=== PATIENT | male | born 1985 | race Two or more races ===

== ENCOUNTER 2025-06-02 09:22 | Inpatient (IN) | payer SELFPAY ==
[~2025-06-02] VITALS: Ht 167.6 cm; Wt 59.0 kg
--- NOTE | 2025-06-02 09:42 | ED.PDOC ---
General HPI Comments 39-year-old male with no significant past medical history presents to the ED via emergency services with a chief complaint of left-sided flank pain. EMS states the patient's pain started approximately 730 this morning, and note the patient was given an ultrasound, and noted sediment in the patient's left kidney and in his bladder. She does not know on using marijuana last night before going to bed. Patient denies any nausea, vomiting, diarrhea, shortness a breath, headache, chest pain, or any other associated symptoms, modifiers at this time. Chief Complaint: Flank Pain Time Seen by MD: 09:39 Reviewed notes: Nurses Notes, Medications, Allergies Allergies: Coded Allergies: NO KNOWN ALLERGIES (Unverified , 06/02/25) Information Source: Patient, Emergency Med Personnel Mode of Arrival: EMS Severity: Moderate Inability to void: None Timing: Hours Duration: Since onset, Hours Has not urinated for: Hours Prehospital treatment: 12 Lead EKG, Dental Biller, Pain Meds Onset: Spontaneous Symptoms: None History of: None Location: (L)Flank Penile discharge: None associated signs and symptoms: Flank Pain Past Medical History PAST MEDICAL HISTORY: Denies Surgical History: Denies all surgeries Family History Family History: Reviewed,noncontributory to illness Social History Smoker: Non-Smoker Alcohol: Denies ETOH Use Drugs: Denies Drug Use Lives In: Home Constitutional: denies: chills, diaphoresis, fatigue, fever, malaise, sweats, weakness, others EENTM: denies: blurred vision, double vision, ear bleeding, ear discharge, ear drainage, ear pain, ear ringing, eye pain, eye redness, hearing loss, mouth pain, mouth swelling, nasal discharge, nose bleeding, nose congestion, nose pain, photophobia, tearing, throat pain, throat swelling, voice changes, others Respiratory: denies: cough, hemoptysis, orthopnea, SOB at rest, shortness of breath, SOB with excertion, stridor, wheezing, others Cardiovascular: denies: chest pain, dizzy spells, diaphoresis, Dyspnea on exertion, edema, irregular heart beat, left arm pain, lightheadedness, palpitations, PND, syncope, others Gastrointestinal: denies: abdomen distended, abdominal pain, blood streaked bowels, constipated, diarrhea, dysphagia, difficulty swallowing, hematemesis, melena, nausea, poor appetite, poor fluid intake, rectal bleeding, rectal pain, vomiting, others Genitourinary: reports: flank pain; denies: burning, dysuria, frequency, hematuria, incontinence, penile discharge, penile sore, pain, testicle pain, testicle swelling, urgency, others Neurological: denies: dizziness, fainting, headache, left sided numbness, left sided weakness, numbness, paresthesia, pre-existing deficit, right sided numbness, right sided weakness, seizure, speech problems, tingling, tremors, weakness, others Musculoskeletal: denies: back pain, gout, joint pain, joint swelling, muscle pain, muscle stiffness, neck pain, others Integumetry: denies: bruises, change in color, change in hair/nails, dryness, laceration, lesions, lumps, rash, wounds, others Allergic/Immunocompromised: denies: Difficulty Healing, Frequent Infections, Hives, Itching, others Hematologic/Lymphatic: denies: anemia, blood clots, easy bleeding, easy bruising, swollen glands, others Endocrine: denies: excessive hunger, excessive sweating, excessive thirst, excessive urination, flushing, intolerance to cold, intolerance to heat, unexplained weight gain, unexplained weight loss, others Psychiatric: denies: anxiety, bipolar disorder, depression, hopeless, panic disorder, schizophrenia, sleepless, suicidal, others All Other Systems: Reviewed and Negative Physical Exam General Appearance: Moderate Distress, Normal HEENT: Normal ENT Inspection, Pharynx Normal, TMs Normal Neck: Full Range of Motion, Non-Tender, Normal, Normal Inspection Respiratory: Chest Non-Tender, Lungs Clear, No Accessory Muscle Use, No Respiratory Distress, Normal Breath Sounds Cardiovascular: No Edema, No JVD, No Murmur, No Gallop, Normal Peripheral Pulses, Regular Rate/Rhythm Breast Exam: Deferred Gastrointestinal: LLQ, No Organomegaly, No Pulsatile Mass, Normal Bowel Sounds, Soft Genitalia: Deferred Pelvic: Deferred Rectal: Deferred Extremities: No calf tenderness, Normal capillary refill, Normal inspection, Normal range of motion, Non-tender, No pedal edema Musculoskeletal : Apperance: Normal Neurologic: Alert, plc technician II-XII nml as Tested, No Motor Deficits, Normal Affect, Normal Mood, No Sensory Deficits Cerebellar Function: NOT DONE Reflexes: NOT DONE Skin: Dry, Normal Color, Warm Peripheral Pulses: 3+ Radial (R), 3+ Radial (L) Lymphatic: No Adenopathy Was a procedure done? Was a procedure done?: No Differential Diagnosis Kidney stone (Female): N/A Kidney stone (Male): Bowel obstruction, Cholelithiasis, Pancreatitis, Pyelonephritis, Strain, Urinary obstruction, Urolithiasis, Urinary tract infection Penile/Scrotal: N/A Urinary Problem (Male): Bladder Obstruction, Epididymitis, Prostatitis, Urethritis, Urinary Retention, Urolithiasis, UTI Urinary Problem (Female): N/A X-Ray, Labs, Meds, VS Vital Signs Date Time Temp Pulse Resp B/P (MAP) Pulse Ox O2 Delivery O2 Flow Rate FiO2 06/02/25 16:00 56 12 125/87 (100) 97 06/02/25 14:00 89 14 111/54 (73) 97 06/02/25 13:19 73 12 105/56 06/02/25 13:00 73 13 105/56 (72) 95 06/02/25 12:49 74 16 109/58 06/02/25 12:30 74 15 101/59 (73) 98 06/02/25 12:00 69 14 104/64 (77) 99 06/02/25 11:00 58 14 98/68 (78) 97 06/02/25 09:56 46 13 99 Room Air* 0 21 06/02/25 09:56 98.5 46 13 128/87 (101) 99 98.5 06/02/25 09:27 97.0 42 22 137/78 100 97.0 Lab Test 06/02/25 09:48 Range/Units White Blood Count 17.5 H 4.4-10.8 10^3/uL Red Blood Count 5.06 4.5-5.90 10^6/uL Hemoglobin 15.9 13.5-17.5 g/dL Hematocrit 46.7 41.0-53.0 % Mean Corpuscular Volume 92.4 80.0-100.0 fL Mean Corpuscular Hemoglobin 31.4 28.0-32.0 pg Mean Corpuscular Hemoglobin Concent 34.0 32.0-36.0 g/dL Red Cell Distribution Width 12.9 11.8-14.3 % Platelet Count 234 140-450 10^3/uL Mean Platelet Volume 8.9 6.9-10.8 fL Neutrophils (%) (Auto) 84.6 H 37.0-80.0 % Lymphocytes (%) (Auto) 11.7 10.0-50.0 % Monocytes (%) (Auto) 2.8 0.0-12.0 % Eosinophils (%) (Auto) 0.7 0.0-7.0 % Basophils (%) (Auto) 0.2 0.0-2.0 % Neutrophils # (Auto) 14.8 H 1.6-8.6 10 ^3/uL Lymphocytes # (Auto) 2.1 0.4-5.4 10 ^3/uL Monocytes # (Auto) 0.5 0-1.3 10 ^3/uL Eosinophils # (Auto) 0.1 0-0.8 10 ^3/uL Basophils # (Auto) 0 0-0.2 10 ^3/uL Nucleated Red Blood Cells 0.0 % Sodium Level 141 136-145 mmol/L Potassium Level 4.5 3.5-5.1 mmol/L Chloride Level 112 H 98-107 mmol/L Carbon Dioxide Level 24 20-31 mmol/L Anion Gap 5 5-15 Blood Urea Nitrogen 10 9-23 mg/dL Creatinine 0.97 0.700-1.30 mg/dL Glomerular Filtration Rate Calc 103 >90 mL/min BUN/Creatinine Ratio 10.3 10.0-20.0 Serum Glucose 112 H 74-106 mg/dL Calcium Level 9.1 8.7-10.4 mg/dL Lipase 30 12-53 U/L Current Medications Medications (Trade) Dose Ordered Sig/Jennifer Route Start Time Stop Time Status Last Admin Ketorolac Tromethamine (Toradol Injection) 30 mg ONCE ONCE IV 06/02/25 09:45 06/02/25 09:46 DC 06/02/25 09:50 Ondansetron HCl (Zofran) 4 mg ONCE ONCE IV 06/02/25 09:45 06/02/25 09:46 DC 06/02/25 09:49 Sodium Chloride 1,000 ml @ 1,000 mls/hr Q1H ONCE IV 06/02/25 09:45 06/02/25 10:44 DC 06/02/25 09:49 Ceftriaxone Sodium 50 ml @ 100 mls/hr ONCE ONCE IV 06/02/25 12:15 06/02/25 12:44 DC 06/02/25 12:23 Sodium Chloride 1,000 ml @ 1,000 mls/hr Q1H ONCE IV 06/02/25 12:30 06/02/25 13:29 DC 06/02/25 12:25 Morphine Sulfate 4 mg ONCE ONCE IV 06/02/25 12:30 06/02/25 12:31 DC 06/02/25 12:49 Ondansetron HCl (Zofran) 4 mg ONCE ONCE IV 06/02/25 12:30 06/02/25 12:31 DC 06/02/25 12:49 Patient alert. Complaining of abdominal pain. Uses marijuana. Vitals stable. Answering questions. Establish intravenous access. Was given fluids. Was given Toradol. Was given Zofran. Continues to have pain. Explained to the patient. Continues to have abdominal pain. CT scan of the abdomen shows kidney stone. WBC elevated. Was given Rocephin. PATIENT: LAWRENCE MATOS ACCT: [id number] UNIT: [id number] : 1985 LOC: ER ROOM / BED: / AGE / SEX: 39 / M ADM STATUS: REG ER SERVICE 1201 ORDERING PHYSICIAN: PAYAM PRINCE MD PROCEDURE(s): ABPL - CT AB PEL WO CON-NO ORAL OR IV REASON: stone ORDER NUMBER(s): [id number], ACCESSION NUMBER(s): [id number] Exam: CT CT AB PEL WO CON-NO ORAL OR IV History: stone Comparison Study: None TECHNIQUE: Multidetector CT of the abdomen was performed from lung bases to pubic symphysis. Imaging was performed without IV contrast. Axial, coronal and sagittal multiplanar reformats were obtained from the axial data set by the technologist. Radiation Dose Information: CT Dose: CTDI volume is 5.08 mGy. Dose-length product is 245.23 mGy*cm FINDINGS: Evaluation of solid organs is limited due to lack of intravenous contrast use. Findings: Lung Bases: No acute or significant lung base finding. Normal heart size. No pleural or pericardial effusion. Liver: The liver is normal in size. No focal lesions. Gallbladder and Biliary Tree: Unremarkable Spleen: Unremarkable Pancreas: The pancreas is grossly normal in appearance. Adrenal Glands: Unremarkable Kidneys: No hydronephrosis. Punctate nonobstructing bilateral renal calculi. Bladder: Grossly unremarkable for degree of distention. Bowel: The stomach is grossly normal in appearance. Small bowel and colon are normal in caliber and distribution. The appendix is not visualized; however, no secondary findings of acute appendicitis identified. Ascites: Absent Lymphadenopathy: No mesenteric, retroperitoneal or periportal lymphadenopathy. Abdominal Wall and Mesentery: Unremarkable. Vasculature: The visualized abdominal aorta is normal in size and caliber. Evaluation of abdominal and pelvic vessels is limited due to lack of intravenous contrast. Pelvic Organs: Unremarkable Musculoskeletal: No aggressive focal bony lesions, acute fractures or dislocation. Soft tissues: Unremarkable IMPRESSION: No hydronephrosis. Punctate nonobstructing bilateral renal calculi. Radiation optimization: All CT scans at this facility use at least one of these dose optimization techniques: automated exposure control mA and/or kV adjustment per patient size (includes targeted exams where dose is matched to clinical indication) or iterative reconstruction. Time of 1ST Reevaluation: 10:09 Reevaluation 1ST: Unchanged Patient Education/Counseling: Diagnosis, Treatment, Need For Follow Up Family Education/Counseling: No Family Present SEPSIS Sepsis Screen Date sepsis recognized/suspect: Jun 02, 2025 Time Sepsis recognized/suspect: 931 Recent Procedure: No On Antibiotic Therapy: No Respiratory Rate >20: Yes Heart Rate >90: No Temp<36 C (96.8 F) or >38.3 C: No SBP <90 or MAP <65 mmHG: No New Acute Mental Status Change: No Is the patient on CPAP, BIPAP,: No Physician Orders Urinalysis (06/02/25 09:36) Drug Screen (06/02/25 09:51) Ct Ab Pel Wo Con-No Oral Or Iv (06/02/25 12:01) Admit (06/02/25 16:50) Code Status (06/02/25 16:50) Vital Signs .PER UNIT PROTOCOL (06/02/25 16:50) Review Orders With Adm.Md (06/02/25 16:50) Encourage Activity As Tolerate (06/02/25 16:50) Regular Diet (06/02/25 Dinner) Sodium Chloride Lock (Saline Lock Ns) (06/02/25 22:00) Docusate Sodium Capsule (Colace Capsule) (06/02/25 17:00) Acetaminophen Tablet (Tylenol Tablet) (06/02/25 17:00) Notify Md Of Changes From Base (06/02/25 16:50) Advance Directive (06/02/25 16:50) Patient Condition (06/02/25 16:50) Allergies (06/02/25 16:50) Hydrocodone-Acet 5/325mg Tab (Bruner 5/32 (06/02/25 17:00) Ondansetron Hcl (Zofran) (06/02/25 17:00) Morphine Sulfate Injection (06/02/25 17:00) Enoxaparin Sodium (Lovenox) (06/03/25 10:00) Tamsulosin Hydrochloride (Flomax) (06/02/25 17:00) Sodium Chloride 0.9% (06/02/25 17:00) Ketorolac Injection (Toradol Injection) (06/02/25 17:15) Vital Signs Date Time Temp Pulse Resp B/P (MAP) Pulse Ox O2 Delivery O2 Flow Rate FiO2 06/02/25 16:00 56 12 125/87 (100) 97 06/02/25 14:00 89 14 111/54 (73) 97 06/02/25 13:19 73 12 105/56 06/02/25 13:00 73 13 105/56 (72) 95 06/02/25 12:49 74 16 109/58 06/02/25 12:30 74 15 101/59 (73) 98 06/02/25 12:00 69 14 104/64 (77) 99 06/02/25 11:00 58 14 98/68 (78) 97 06/02/25 09:56 46 13 99 Room Air* 0 21 06/02/25 09:56 98.5 46 13 128/87 (101) 99 98.5 06/02/25 09:27 97.0 42 22 137/78 100 97.0 Laboratory Tests Test 06/02/25 09:48 White Blood Count 17.5 10^3/uL (4.4-10.8) H Medications Medications Dose Ordered Sig/Jennifer Route Start Time Stop Time Status Last Admin Dose Admin Ceftriaxone Sodium 50 ml @ 100 mls/hr ONCE ONCE IV 06/02/25 12:15 06/02/25 12:44 DC 06/02/25 12:23 Ketorolac Tromethamine 30 mg ONCE ONCE IV 06/02/25 09:45 06/02/25 09:46 DC 06/02/25 09:50 Morphine Sulfate 4 mg ONCE ONCE IV 06/02/25 12:30 06/02/25 12:31 DC 06/02/25 12:49 Ondansetron HCl 4 mg ONCE ONCE IV 06/02/25 09:45 06/02/25 09:46 DC 06/02/25 09:49 Ondansetron HCl 4 mg ONCE ONCE IV 06/02/25 12:30 06/02/25 12:31 DC 06/02/25 12:49 Sodium Chloride 1,000 ml @ 1,000 mls/hr Q1H ONCE IV 06/02/25 09:45 06/02/25 10:44 DC 06/02/25 09:49 Sodium Chloride 1,000 ml @ 1,000 mls/hr Q1H ONCE IV 06/02/25 12:30 06/02/25 13:29 DC 06/02/25 12:25 Departure 1 Departure Time of Disposition: 09:51 Impression: Primary Impression: Acute abdominal pain Additional Impression: Kidney stone Disposition: ADMITTED INPATIENT Admit to: Med Surg Condition: Guarded Critical Care Note Critical Care Time?: No Stability Stability form required: No Heart Score Heart Score: Heart Score Response (Comments) Value History N/A 0 EKG N/A 0 Age N/A 0 Risk Factors N/A 0 Troponin N/A 0 Total 0 I personally scribed for PAYAM PRINCE MD ([email or web address]) on 06/02/25 at 09:42. Electronically submitted by Mayco Rothman ([email or web address]). I personally scribed for PAYAM PRINCE MD ([email or web address]) on 06/02/25 at 13:57. Electronically submitted by Mayco Rothman ([email or web address]). PAYAM PRINCE MD Jun 02, 2025 09:42
[2025-06-02] MEDS: ONDANSETRON HCL 4 MG/2 ML VIAL IV ONE ×2 (09:49→12:49)
[2025-06-02] MEDS: SODIUM CHLORIDE 0.9% 1,000 ML IV ONE ×3 (09:49→17:47)
[2025-06-02] MEDS: KETOROLAC TROMETH 30 MG/ML 1ML VIAL IV ONE (09:50)
[2025-06-02 09:56] VITALS: PULSE 46; RESP 13; O2SAT 99
[2025-06-02 10:02] LABS: Hematocrit 46.7 % (41.0-53.0); Hemoglobin 15.9 g/dL (13.5-17.5); Mean Corpuscular Hemoglobin 31.4 pg (28.0-32.0); Mean Corpuscular Volume 92.4 fL (80.0-100.0); Nucleated Red Blood Cells % 0.0 %
[2025-06-02 10:16] LABS: Anion Gap 5 (5-15); Carbon Dioxide 24 mmol/L (20-31); Potassium 4.5 mmol/L (3.5-5.1); Sodium 141 mmol/L (136-145)
[2025-06-02 10:17] LABS: Calcium 9.1 mg/dL (8.7-10.4)
[2025-06-02 10:22] LABS: BUN/Creatinine Ratio 10.3 (10.0-20.0); Blood Urea Nitrogen 10 mg/dL (9-23); Lipase 30 U/L (12-53)
[2025-06-02 10:24] LABS: Chloride 112 mmol/L (98-107); Glucose 112 mg/dL (74-106)
[2025-06-02] MEDS: cefTRIAXone 1GM/50ML D5W 50 ML IV ONE (12:23)
--- NOTE | 2025-06-02 12:40 | DVH ---
Exam: CT CT AB PEL WO CON-NO ORAL OR IV History: stone Comparison Study: None TECHNIQUE: Multidetector CT of the abdomen was performed from lung bases to pubic symphysis. Imaging was performed without IV contrast. Axial, coronal and sagittal multiplanar reformats were obtained fr om the axial data set by the technologist. Radiation Dose Information: CT Dose: CTDI volume is 5.08 mGy. Dose-length product is 245.23 mGy*cm FINDINGS: Evaluation of solid organs is limited due to lack of intravenous contrast use. Findings: Lung Bases: No acute or significant lung base finding. Normal heart size. No pleural or pericardial effusion. Liver: The liver is normal in size. No focal lesions. Gallbladder and Biliary Tree: Unremarkable Spleen: Unremarkable Pancreas: The pancreas is grossly normal in appearance. Adrenal Glands: Unremarkable Kidneys: No hydronephrosis. Punctate nonobstructing bilateral renal calculi. Bladder: Grossly unremarkable for degree of distention. Bowel: The stomach is grossly normal in appearance. Small bowel and colon are normal in caliber and d istribution. The appendix is not visualized; however, no secondary findings of acute appendicitis id entified. Ascites: Absent Lymphadenopathy: No mesenteric, retroperitoneal or periportal lymphadenopathy. Abdominal Wall and Mesentery: Unremarkable. Vasculature: The visualized abdominal aorta is normal in size and caliber. Evaluation of abdominal a nd pelvic vessels is limited due to lack of intravenous contrast. Pelvic Organs: Unremarkable Musculoskeletal: No aggressive focal bony lesions, acute fractures or dislocation. Soft tissues: Unremarkable IMPRESSION: No hydronephrosis. Punctate nonobstructing bilateral renal calculi. Radiation optimization: All CT scans at this facility use at least one of these dose optimization marquis hniques: automated exposure control mA and/or kV adjustment per patient size (includes targeted exam s where dose is matched to clinical indication) or iterative reconstruction.
[2025-06-02] MEDS: MORPHINE SULFATE 4 MG/ML SYR/VIAL IV ONE (12:49)
[2025-06-02] MEDS ORDERED: ACETAMINOPHEN 325 MG TAB PO PRN (17:00)
[2025-06-02] MEDS ORDERED: DOCUSATE SOD 100 MG CAP PO PRN (17:00)
--- NOTE | 2025-06-02 17:04 | DVHHP2 ---
Admitting Diagnosis: Flank pain History of Present Illness 39-year-old male with no significant past medical history presents to the ED via emergency services with a chief complaint of left-sided flank pain. EMS states the patient's pain started approximately 730 this morning, and note the patient was given an ultrasound, and noted sediment in the patient's left kidney and in his bladder. She does not know on using marijuana last night before going to bed. Patient denies any nausea, vomiting, diarrhea, shortness a breath, headache, chest pain, or any other associated symptoms, modifiers at this time. PAST MEDICAL HISTORY: Denies Surgical History: Denies all surgeries Family History Family History: Reviewed,noncontributory to illness Social History Smoker: Non-Smoker Alcohol: Denies ETOH Use Drugs: Denies Drug Use Lives In: Home Allergies: Coded Allergies: NO KNOWN ALLERGIES (Unverified , 06/02/25) Current Medications Current Medications Medications (Trade) Dose Ordered Sig/Jennifer Route PRN Reason Start Time Stop Time Status Last Admin Sodium Chloride (Saline Lock Ns) 10 ml Q8HR IV 06/02/25 22:00 UNV Docusate Sodium (Colace Capsule) 100 mg BIDPRN PRN PO FOR CONSTIPATION 06/02/25 17:00 UNV Acetaminophen (Tylenol Tablet) 650 mg Q6HP PRN PO PAIN SCALE 1-3 OR TEMP>100.4 06/02/25 17:00 UNV Acetaminophen/ Hydrocodone Bitart ([place] 5/325MG Tab) 1 tab Q4HP PRN PO MODERATE PAIN (4-6 PAIN SCALE) 06/02/25 17:00 UNV Ondansetron HCl (Zofran) 4 mg Q4HP PRN IV NAUSEA / VOMITING 06/02/25 17:00 UNV Morphine Sulfate 4 mg Q4HPRN PRN IV SEVERE PAIN (7-10 PAIN SCALE) 06/02/25 17:00 UNV Enoxaparin Sodium (Lovenox) 40 mg DAILY SC 06/03/25 10:00 UNV Vital Signs Vital Signs Date Time Temp Pulse Resp B/P (MAP) Pulse Ox O2 Delivery O2 Flow Rate FiO2 06/02/25 16:00 56 12 125/87 (100) 97 06/02/25 09:56 Room Air* 0 21 06/02/25 09:56 98.5 98.5 Physical Exam Generally-39 years old male, well nourished well developed. moderate distress, HEENT-atraumatic normocephalic Heart-regular rate and rhythm lungs clear to auscultate Abdomen soft nontender nondistended Musculoskeletal-left lower flank pain radiating to the right groin Neuro-AO x3, no focal deficits SEPSIS Sepsis Screen Date sepsis recognized/suspect: Jun 02, 2025 Time Sepsis recognized/suspect: 931 Recent Procedure: No On Antibiotic Therapy: No Respiratory Rate >20: Yes Heart Rate >90: No Temp<36 C (96.8 F) or >38.3 C: No SBP <90 or MAP <65 mmHG: No New Acute Mental Status Change: No Is the patient on CPAP, BIPAP,: No Physician Orders Urinalysis (06/02/25 09:36) Drug Screen (06/02/25 09:51) Ct Ab Pel Wo Con-No Oral Or Iv (06/02/25 12:01) Admit (06/02/25 16:50) Code Status (06/02/25 16:50) Vital Signs .PER UNIT PROTOCOL (06/02/25 16:50) Review Orders With Adm.Md (06/02/25 16:50) Encourage Activity As Tolerate (06/02/25 16:50) Regular Diet (06/02/25 Dinner) Sodium Chloride Lock (Saline Lock Ns) (06/02/25 22:00) Docusate Sodium Capsule (Colace Capsule) (06/02/25 17:00) Acetaminophen Tablet (Tylenol Tablet) (06/02/25 17:00) Notify Md Of Changes From Base (06/02/25 16:50) Advance Directive (06/02/25 16:50) Patient Condition (06/02/25 16:50) Allergies (06/02/25 16:50) Hydrocodone-Acet 5/325mg Tab ([place] 5/32 (06/02/25 17:00) Ondansetron Hcl (Zofran) (06/02/25 17:00) Morphine Sulfate Injection (06/02/25 17:00) Enoxaparin Sodium (Lovenox) (06/03/25 10:00) Tamsulosin Hydrochloride (Flomax) (06/02/25 17:00) Sodium Chloride 0.9% (06/02/25 17:00) Vital Signs Date Time Temp Pulse Resp B/P (MAP) Pulse Ox O2 Delivery O2 Flow Rate FiO2 06/02/25 16:00 56 12 125/87 (100) 97 06/02/25 14:00 89 14 111/54 (73) 97 06/02/25 13:19 73 12 105/56 06/02/25 13:00 73 13 105/56 (72) 95 06/02/25 12:49 74 16 109/58 06/02/25 12:30 74 15 101/59 (73) 98 06/02/25 12:00 69 14 104/64 (77) 99 06/02/25 11:00 58 14 98/68 (78) 97 06/02/25 09:56 46 13 99 Room Air* 0 21 06/02/25 09:56 98.5 46 13 128/87 (101) 99 98.5 06/02/25 09:27 97.0 42 22 137/78 100 97.0 Laboratory Tests Test 06/02/25 09:48 White Blood Count 17.5 10^3/uL (4.4-10.8) H Medications Medications Dose Ordered Sig/Jennifer Route Start Time Stop Time Status Last Admin Dose Admin Ceftriaxone Sodium 50 ml @ 100 mls/hr ONCE ONCE IV 06/02/25 12:15 06/02/25 12:44 DC 06/02/25 12:23 Ketorolac Tromethamine 30 mg ONCE ONCE IV 06/02/25 09:45 06/02/25 09:46 DC 06/02/25 09:50 Morphine Sulfate 4 mg ONCE ONCE IV 06/02/25 12:30 06/02/25 12:31 DC 06/02/25 12:49 Ondansetron HCl 4 mg ONCE ONCE IV 06/02/25 09:45 06/02/25 09:46 DC 06/02/25 09:49 Ondansetron HCl 4 mg ONCE ONCE IV 06/02/25 12:30 06/02/25 12:31 DC 06/02/25 12:49 Sodium Chloride 1,000 ml @ 1,000 mls/hr Q1H ONCE IV 06/02/25 09:45 06/02/25 10:44 DC 06/02/25 09:49 Sodium Chloride 1,000 ml @ 1,000 mls/hr Q1H ONCE IV 06/02/25 12:30 06/02/25 13:29 DC 06/02/25 12:25 Results Labs Test 06/02/25 09:48 Range/Units White Blood Count 17.5 H 4.4-10.8 10^3/uL Red Blood Count 5.06 4.5-5.90 10^6/uL Hemoglobin 15.9 13.5-17.5 g/dL Hematocrit 46.7 41.0-53.0 % Mean Corpuscular Volume 92.4 80.0-100.0 fL Mean Corpuscular Hemoglobin 31.4 28.0-32.0 pg Mean Corpuscular Hemoglobin Concent 34.0 32.0-36.0 g/dL Red Cell Distribution Width 12.9 11.8-14.3 % Platelet Count 234 140-450 10^3/uL Mean Platelet Volume 8.9 6.9-10.8 fL Neutrophils (%) (Auto) 84.6 H 37.0-80.0 % Lymphocytes (%) (Auto) 11.7 10.0-50.0 % Monocytes (%) (Auto) 2.8 0.0-12.0 % Eosinophils (%) (Auto) 0.7 0.0-7.0 % Basophils (%) (Auto) 0.2 0.0-2.0 % Neutrophils # (Auto) 14.8 H 1.6-8.6 10 ^3/uL Lymphocytes # (Auto) 2.1 0.4-5.4 10 ^3/uL Monocytes # (Auto) 0.5 0-1.3 10 ^3/uL Eosinophils # (Auto) 0.1 0-0.8 10 ^3/uL Basophils # (Auto) 0 0-0.2 10 ^3/uL Nucleated Red Blood Cells 0.0 % Sodium Level 141 136-145 mmol/L Potassium Level 4.5 3.5-5.1 mmol/L Chloride Level 112 H 98-107 mmol/L Carbon Dioxide Level 24 20-31 mmol/L Anion Gap 5 5-15 Blood Urea Nitrogen 10 9-23 mg/dL Creatinine 0.97 0.700-1.30 mg/dL Glomerular Filtration Rate Calc 103 >90 mL/min BUN/Creatinine Ratio 10.3 10.0-20.0 Serum Glucose 112 H 74-106 mg/dL Calcium Level 9.1 8.7-10.4 mg/dL Lipase 30 12-53 U/L Primary Diagnosis Bilateral renal calculus Plan IV fluids Tamsulosin Pain control Antiemetic Regular diet Full code Lovenox for DVT prophylaxis No GI prophylaxis needed Plan discussed with: Patient Problems List: (1) Renal calculus Date of Service: Jun 02, 2025 Billing Provider: NIRMAL CERRATO MD Common Visit Codes: [id number] INP/OBS CARE (MOD) NIRMAL CERRATO MD Jun 02, 2025 17:04
[2025-06-02] MEDS: ONDANSETRON HCL 4 MG/2 ML VIAL IV PRN (17:46)
[2025-06-02] MEDS: MORPHINE SULFATE INJ 2 MG/ml SYRG IV PRN (17:47)
[2025-06-02] MEDS: TAMSULOSIN HYDROCHLORIDE 0.4 MG CAP PO SCH (17:48)
[2025-06-02 19:30] VITALS: TEMP 97.5
[2025-06-02] MEDS: KETOROLAC TROMETH 30 MG/ML 1ML VIAL IV PRN (20:19)
[2025-06-02] MEDS: SODIUM CHLOR 0.9% PF (SALINE LOCK) 10ML VIAL/SYR IV SCH (22:04)
[2025-06-03 02:00] VITALS: BP 91/44; PULSE 45; RESP 13; O2SAT 97
[2025-06-03] MEDS: LACTATED RINGER'S 1,000 ML IV SCH (03:00)
[2025-06-03] MEDS: LACTATED RINGER'S 500 ML IV ONE (03:28)
--- NOTE | 2025-06-03 07:12 | ECG ---
[facility] Test Date: 2025-06-03 Test Time: 02:23:47 Pat Name: LAWRENCE MATOS Department: [facility] ED Room: [address] [place] [address] A Gender: M [employer] Operator: SCOTT : 1985 Requested By: ASH BUNDY Order Number: [id number] Reading MD: King Loaiza Measurements Intervals [place] Rate: 47 P: 70 IL: 156 QRS: 85 QRSD: 93 T: 72 QT: 483 QTc: 427 Interpretive Statements Sinus bradycardia Probable left atrial enlargement Abnrm T, consider ischemia, anterolateral lds Electronically Signed On 06-06-2025 14:35:54 PDT by King Loaiza Please click the below link to view image of tracing.
[2025-06-03] MEDS ORDERED: ENOXAPARIN SOD 40 MG/0.4 ML SYRINGE SC SCH (10:00)
--- NOTE | 2025-06-03 18:42 | DVHDS2 ---
Discharge Summary Date of Admission Jun 02, 2025 at 16:52 Date of Discharge: Jun 03, 2025 Labs/Diagnostic Data: Laboratory Results Test 06/02/25 09:48 White Blood Count 17.5 10^3/uL (4.4-10.8) Red Blood Count 5.06 10^6/uL (4.5-5.90) Hemoglobin 15.9 g/dL (13.5-17.5) Hematocrit 46.7 % (41.0-53.0) Mean Corpuscular Volume 92.4 fL (80.0-100.0) Mean Corpuscular Hemoglobin 31.4 pg (28.0-32.0) Mean Corpuscular Hemoglobin Concent 34.0 g/dL (32.0-36.0) Red Cell Distribution Width 12.9 % (11.8-14.3) Platelet Count 234 10^3/uL (140-450) Mean Platelet Volume 8.9 fL (6.9-10.8) Neutrophils (%) (Auto) 84.6 % (37.0-80.0) Lymphocytes (%) (Auto) 11.7 % (10.0-50.0) Monocytes (%) (Auto) 2.8 % (0.0-12.0) Eosinophils (%) (Auto) 0.7 % (0.0-7.0) Basophils (%) (Auto) 0.2 % (0.0-2.0) Neutrophils # (Auto) 14.8 10 ^3/uL (1.6-8.6) Lymphocytes # (Auto) 2.1 10 ^3/uL (0.4-5.4) Monocytes # (Auto) 0.5 10 ^3/uL (0-1.3) Eosinophils # (Auto) 0.1 10 ^3/uL (0-0.8) Basophils # (Auto) 0 10 ^3/uL (0-0.2) Nucleated Red Blood Cells 0.0 % Sodium Level 141 mmol/L (136-145) Potassium Level 4.5 mmol/L (3.5-5.1) Chloride Level 112 mmol/L (98-107) Carbon Dioxide Level 24 mmol/L (20-31) Anion Gap 5 (5-15) Blood Urea Nitrogen 10 mg/dL (9-23) Creatinine 0.97 mg/dL (0.700-1.30) Glomerular Filtration Rate Calc 103 mL/min (>90) BUN/Creatinine Ratio 10.3 (10.0-20.0) Serum Glucose 112 mg/dL (74-106) Calcium Level 9.1 mg/dL (8.7-10.4) Lipase 30 U/L (12-53) Other Laboratory Tests 06/02/25 09:48 Brief Hx & Hospital Course: 39-year-old male with no significant past medical history presents to the ED via emergency services with a chief complaint of left-sided flank pain. EMS states the patient's pain started approximately 730 this morning, and note the patient was given an ultrasound, and noted sediment in the patient's left kidney and in his bladder. She does not know on using marijuana last night before going to bed. Patient denies any nausea, vomiting, diarrhea, shortness a breath, headache, chest pain, or any other associated symptoms. This patient was assigned to me today but patient left against medical advice before I came to see the patient, before completion of workup and treatment. Condition at Discharge: Undetermined Final Diagnosis/Problems List Flank pain Bilateral nonobstructing renal calculi Discharge Disposition: AMA SNF Discharge Will this Physician continue t: No Discharge Statement: "Patient was advised to return to the ER or call 911 if any headaches, dizziness, shortness of breath, chest pain, abdominal pain, bleeding, fevers, or worsening of medical condition. Patient was counseled about treatment plan, medications, possible side effects, patientverbalized understanding. All questions were answered to the best of my ability. This discharge took greater then 30 minutes in planning, reviewing documentation, counseling the patient, and discussing with other team members." ASSESSMENT ASSESSMENT Assessment Date of Service: Jun 03, 2025 Billing Provider: SOBEIDA MERAZ MD Common Visit Codes: 57492-MZC/OBS DISCH DAY <30MIN SOBEIDA MERAZ MD Jun 03, 2025 18:42
[2025-06-07] MEDS ORDERED: HYDROcodone-ACET 5/325MG TAB PO PRN (17:15)
== END 2025-06-03 02:56 | disposition left against medical advice (07) | DRG 694 ==
LOC: ER 09:22 → EDBD 09:22 → EEVIPCON 09:22 → OVERFLOW 16:52
PROVIDERS: ADMIT Internal Medicine; ATTEND Internal Medicine
DX: N20.0 Calculus of kidney (principal); Z53.29 Procedure and treatment not carried out because of patient's decision for other reasons
CPT/HCPCS: 36415; 74176; 80048; 83690; 85025; 93005; 96361; 96374; G0378; J1885; J2405